=== PATIENT | male | born 1995 | race Caucasian/White ===

== ENCOUNTER 2019-06-04 05:17 | Emergency (ER) | payer OTHER ==
[~2019-06-04] VITALS: Ht 182.9 cm; Wt 84.4 kg
[~2019-06-04 05:17] MED LIST: DOLOGEN CAPLET1 EACH PO; NORFLEX100MG PO
== END 2019-06-04 12:45 | disposition home or self-care (01) ==
LOC: ER 05:17
DX: R42 Dizziness and giddiness (principal); R00.2 Palpitations

== ENCOUNTER → 2019-06-14 | Emergency (ER) | payer OTHER ==
[~2019-06-14] VITALS: Ht 182.9 cm; Wt 84.8 kg
== END | disposition home or self-care (01) ==
LOC: ER 20:50
DX: R55 Syncope and collapse (principal)

== ENCOUNTER 2021-09-26 10:56 | Emergency (ER) | payer OTHER ==
[~2021-09-26] VITALS: Ht 182.9 cm; Wt 87.5 kg
[2021-09-26] MEDS ORDERED: NORFLEX100MG PO (13:01)
== END 2021-09-26 13:21 | disposition home or self-care (01) ==
LOC: ER 10:56
DX: S69.91XA Unspecified injury of right wrist, hand and finger(s), initial encounter (principal); W18.30XA Fall on same level, unspecified, initial encounter; Y93.67 Activity, basketball; Y92.310 Basketball court as the place of occurrence of the external cause; M54.50 Low back pain, unspecified; Z88.8 Allergy status to other drugs, medicaments and biological substances